=== PATIENT | female | born 1970 | race Caucasian/White ===

== ENCOUNTER → 2017-10-05 | Day surgery (SDC) | payer OTHER ==
[~2017-10-05] VITALS: Ht 162.6 cm; Wt 75.7 kg
[~2017-10-05] MED LIST: CLONAZEPAM1 M2 PO; CLONIDINE HCL0.1 MG PO; JUNEL FE 1 MG-1 EACH PO; LIPITOR80 M1 PO; PRINIVIL10 M1 PO; VITAMIN D2000 UNIT PO
--- NOTE | 2017-10-05 10:03 | MAMMOGRAPHY REPORT ---
EXAMINATION: MM GUIDED NEEDLE LOCALIZATION BREAST, RIGHT CLINICAL INFORMATION: Preoperative localization of right breast mass in the upper outer quadrant found on biopsy to represent a complex sclerosing lesion with focal flat epithelial atypia, ductal hyperplasia without atypia, duct dilatation, and papillary apocrine metaplasia and fibroadenomatous change. COMPARISON: Stereotactic biopsy films dated 07/11/2017. TECHNIQUE NEEDLE LOC: Proper informed consent is obtained from the patient after discussion of the procedure, potential risks and complications, and alternatives including declining the procedure today. Patient was given an opportunity for questions. The patient appeared to understand. The patient consented to the procedure and signed the consent form. GUIDANCE: Digital mammography. APPROACH: Lateral. TARGET: Biopsy clip in the upper outer quadrant of the right breast. ANESTHESIA: 10 mL lidocaine 2 % LOCALIZATION MARKER: [employer] 5 cm needle localization system. The skin was prepped and local anesthesia administered. The needle was positioned and position assessed with mammography. The wire was hooked into position. The patient tolerated the procedure well and had no immediate complication. Diagram was marked for the surgeon. The target is located around the thick segment of the wire, 3 cm deep to the skin with 10 cm of the wire remaining external to the skin. IMPRESSION: Status post right breast needle localization with wire hooked into position. The target is located around the thick segment of the wire, 3 cm deep to the skin with 10 cm of the wire remaining external to the skin.
--- NOTE | 2017-10-05 12:45 | Operative Report ---
Operative/Inv Procedure Report Surgery Date: 10/05/17 Name of Procedure: Right breast biopsy with wire localization Pre-Operative Diagnosis: Right breast complex sclerosing lesion Post-Operative Diagnosis: Same Estimated Blood Loss: scant Surgeon/Carpenter Helper: Barb Riley MD Anesthesia: local monitored anesthesi Specimens: Right breast biopsy Operative/Procedure Note Note: Patient is status post a needle biopsy showing high risk lesion. Decision was made for an excisional biopsy. Patient was brought to the operating room after preoperative wire localization was performed and the films reviewed. 2 g of Ancef was given, and the breast was prepped and draped in a sterile fashion using ChloraPrep. Local anesthesia 1% lidocaine mixed half percent Marcaine was given and a curvilinear incision was made around the areola. The wire was dissected brought into the incision. The area of concern was grasped using an Allis clamp. Specimen was removed and marked for orientation using margin map. Intraoperative x-ray confirmed the presence of the clip in specimen. Hemostasis adequate and the deep tissue was approximated using interrupted Vicryl sutures. Skin was closed using a running Biosyn subcuticular stitch. Steri-Strips and sterile dressings were applied and the patient was transferred to the recovery room in satisfactory condition having tolerated procedure well.
--- NOTE | 2017-10-05 17:25 | MAMMOGRAPHY REPORT ---
EXAMINATION: MM NEEDLE LOCALIZATION SPECIMEN FROM THE BREAST, RIGHT CLINICAL INDICATION: Specimen radiograph. COMPARISON: Needle localization films from earlier today. TECHNIQUE: Single view of the specimen was performed. FINDINGS: The radiograph of the excised surgical specimen shows that the hookwire is delivered intact and the marker clip is identified in the specimen. IMPRESSION: Satisfactory excision of the targeted lesion. These findings were communicated to the surgeon in the OR at the time of specimen radiography.
== END ==
LOC: STS 02:21
DX: N60.81 Other benign mammary dysplasias of right breast (principal); I10 Essential (primary) hypertension
CPT/HCPCS: 81025; J0690; J2001; J2250